=== PATIENT | male | born 1970 | race Hispanic/Latino ===

== ENCOUNTER 2017-10-01 19:30 | Emergency (ER) | payer SELFPAY ==
--- NOTE | 2017-10-01 19:36 | EDM.PDOC ---
ED HPI GENERAL MEDICAL PROBLEM - General Chief Complaint: ENT Problem Stated Complaint: FT SIDE OF THROAT HURTS AND SWOLLEN Time Seen by Provider: 10/01/17 19:35 Source of Information: Reports: Patient - History of Present Illness INITIAL COMMENTS - FREE TEXT/NARRATIVE: HISTORY AND PHYSICAL: History of present illness: []Patient with sore throat increasing in severity over the last 2-3 days some difficulty with solid food no difficulty with liquid no fever nausea vomiting chills sweats No muffled voice drooling or trismus Review of systems: As per history of present illness and below otherwise all systems reviewed and negative. Past medical history: As per history of present illness and as reviewed below otherwise noncontributory. Surgical history: As per history of present illness and as reviewed below otherwise noncontributory. Social history: No reported history of drug or alcohol abuse. Family history: As per history of present illness and as reviewed below otherwise noncontributory. Physical exam: HEENT: Atraumatic, normocephalic, pupils reactive, negative for conjunctival pallor or scleral icterus, mucous membranes moist, throat clear, neck supple, nontender, trachea midline. moderate erythema white patchy exudates no meningeal sign Lungs: Clear to auscultation, breath sounds equal bilaterally, chest nontender. Heart: S1S2, regular, negative for clicks, rubs, or JVD. Abdomen: Soft, nondistended, nontender. Negative for masses or hepatosplenomegaly. Negative for costovertebral tenderness. Pelvis: Stable nontender. Genitourinary: Deferred. Rectal: Deferred. Extremities: Atraumatic, negative for cords or calf pain. Neurovascular unremarkable. Neuro: Awake, alert, oriented. Cranial nerves II through XII unremarkable. Cerebellum unremarkable. Motor and sensory unremarkable throughout. Exam nonfocal. Diagnostics: [ medical ] Therapeutics: [ Rocephin 1 g IM Augmentin 875 by mouth twice a day #20 no refill ] Impression: [ acute pharyngitis] Definitive disposition and diagnosis as appropriate pending reevaluation and review of above. throat Pain Score (Numeric/FACES): 8 - Related Data Allergies Allergy/AdvReac Type Severity Reaction Status Date / Time No Known Allergies Allergy Verified 10/01/17 19:41 Home Meds: Home Meds Blood Pressure Med 10/01/17 [History] metFORMIN [Glucophage XR] 500 mg PO BID 10/01/17 [History] ED ROS GENERAL - Review of Systems Review Of Systems: See Below ED EXAM, GENERAL - Physical Exam Exam: See Below Course - Vital Signs Last Recorded V/S: Last Vital Signs Temp 97 F 10/01/17 19:38 Pulse 115 H 10/01/17 19:38 Resp 20 10/01/17 19:38 BP 169/102 H 10/01/17 19:38 Pulse Ox 94 L 10/01/17 19:38 - Orders/Labs/Meds Orders: Active Orders 24 hr Category Date Time Status cefTRIAXone [Rocephin] 1,000 mg Med 10/01/17 19:46 Ordered Lidocaine 1% [Xylocaine-MPF 1%] 4 ml IM ONETIME Departure - Departure Time of Disposition: 19:47 Disposition: Home, Self-Care 01 Condition: Good Clinical Impression: Pharyngitis - Discharge Information Referrals: PCP,None [Primary Care Provider] - Forms: ED Department Discharge Additional Instructions: The following information is given to patients seen in the emergency department who are being discharged to home. This information is to outline your options for follow-up care. We provide all patients seen in our emergency department with a follow-up referral. The need for follow-up, as well as the timing and circumstances, are variable depending upon the specifics of your emergency department visit. If you don't have a primary care physician on staff, we will provide you with a referral. We always advise you to contact your personal physician following an emergency department visit to inform them of the circumstance of the visit and for follow-up with them and/or the need for any referrals to a consulting specialist. The emergency department will also refer you to a specialist when appropriate. This referral assures that you have the opportunity for follow-up care with a specialist. All of these measure are taken in an effort to provide you with optimal care, which includes your follow-up. Under all circumstances we always encourage you to contact your private physician who remains a resource for coordinating your care. When calling for follow-up care, please make the office aware that this follow-up is from your recent emergency room visit. If for any reason you are refused follow-up, please contact the [facility] emergency department at and asked to speak to the emergency department charge nurse. - My Orders Last 24 Hours: My Active Orders 10/01/17 19:46 cefTRIAXone [Rocephin] 1,000 mg Lidocaine 1% [Xylocaine-MPF 1%] 4 ml IM ONETIME - Assessment/Plan Last 24 Hours: My Active Orders 10/01/17 19:46 cefTRIAXone [Rocephin] 1,000 mg Lidocaine 1% [Xylocaine-MPF 1%] 4 ml IM ONETIME
[2017-10-01] MEDS ORDERED: cefTRIAXone 1,000 MG in Lidocaine 1% 4 ML IM ONE (19:46)
== END 2017-10-01 20:05 | disposition home or self-care (01) ==
LOC: MW.ED 19:30
DX: J02.9 Acute pharyngitis, unspecified (principal)
CPT/HCPCS: 96372; 99282; J0696; J2001